=== PATIENT | male | born 1960 | race Caucasian/White ===

== ENCOUNTER 2017-10-01 12:39 | Outpatient (CLI) | payer BC ==
[2017-10-01 13:28] LABS: #Basophils 0.1 thou/uL (0.0-0.2); #Eosinphils 0.1 thou/uL (0.0-0.7); #Lymphocytes 1.4 thou/uL (1.20-3.40); #Monocytes 0.4 thou/uL (0.11-0.59); #Neutrophils 3.6 thou/uL (1.40-6.50); %Basophils 1.2 % (0.0-1.0); %Eosinophils 2.7 % (0.0-10.0); %Lymphocytes 25.7 % (21.0-51.0); %Monocytes 6.5 % (0.0-10.0); Hemoglobin 14.7 g/dL (14.0-18.0); Mean Corpuscular HGB CONC 32.7 g/dL (32.0-36.0); Mean Corpuscular Hemoglobin 31.6 pg (27.0-31.0); Mean Corpuscular Volume 96.7 fl (80.0-94.0); Mean Platelet Volume 6.7 fL (7.4-10.4); Platelet Count 295 thou/uL (130-400); RBC Distribution Width 11.5 % (11.5-14.5); Red Blood Cell (RBC) Count 4.64 mill/uL (4.70-6.10); White Blood Cell (WBC) Count 5.6 thou/uL (4.8-10.8)
[2017-10-01 13:56] LABS: Anion Gap 11 mmol/L (10-20); BUN (Urea Nitrogen) 12 mg/dL (8.4-25.7); Calc. Creatinine Clearance 0 mL/min (70-130); Calcium 9.4 mg/dL (7.8-10.44); Carbon Dioxide 30 mmol/L (22-29); Chloride 104 mmol/L (98-107); Estimated GFR-MDRD Greater than 90; Glucose 106 mg/dL (70-105); Potassium 4.5 mmol/L (3.5-5.1); Sodium 140 mmol/L (136-145)
== END 2017-10-01 12:40 | disposition home or self-care (01) ==
LOC: LABBT 12:39
PROVIDERS: ATTEND Orthopaedic Surgery Hand Surgery
DX: Z01.812 Encounter for preprocedural laboratory examination (principal); M65.331 Trigger finger, right middle finger
CPT/HCPCS: 80048; 85025

== ENCOUNTER 2017-10-02 06:50 | Day surgery (SDC) | payer BC ==
[2017-10-01 12:59] VITALS: BMI 27.9
[2017-10-02] MEDS ORDERED: CEFAZOLIN/Water 2 GM/20 ML SYRINGE ONE (07:54)
[2017-10-02] MEDS ORDERED: Sodium Chloride 0.9% 10 ML ONE (08:53)
[2017-10-02] MEDS ORDERED: Bupivacaine 0.5% 10 ML VIAL ONE (08:53)
[2017-10-02] MEDS ORDERED: Bacitracin Zinc Ointment 30 gm TUBE ONE (08:53)
[2017-10-02] MEDS ORDERED: Betamet Acet/Betamet Na Ph 30 MG/5 ML VIAL ONE (08:53)
[2017-10-02] MEDS ORDERED: Midazolam HCl 2 mg/2 ml Vial ONE ×2 (08:55)
[2017-10-02] MEDS ORDERED: Fentanyl 100 MCG/2 ML VIAL ONE (08:55)
[2017-10-02] MEDS ORDERED: Ketorolac Tromethamine 30 MG/ML VIAL ONE ×2 (10:15→16:33)
--- NOTE | 2017-10-02 11:20 | OP ---
DATE OF PROCEDURE: 10/02/2017 PREOPERATIVE DIAGNOSIS: Right middle finger trigger digit. POSTOPERATIVE DIAGNOSES: Right middle finger trigger digit with findings of FDS and FDP flexor profu ndus and superficialis, tenosynovitis. PROCEDURE PERFORMED: 1. Flexor digitorum tenosynovectomy, profundus superficialis. 2. A1 lbiia release, right middle finger. TOURNIQUET TIME: 12 minutes. ESTIMATED BLOOD LOSS: Blood loss less than 2 mL. SPECIMEN: None. FINDINGS: Very tight A1 libia with tenosynovial edema and thickening underneath and proximal to the flexor tendon. SURGEON: Galindo Miguel M.D. DESCRIPTION OF PROCEDURE: After successful general LMA technique the limb was prepped and draped. W e did augment this with a 5 mL 0.5% Marcaine just proximal to the transverse incision. The incision was outlined along the volar MP joint flexion crease which was oblique at the long/middle finger. To urniquet was inflated after exsanguination of the limb to 250 mmHg pressure. We entered this outline d incision carried through skin and subcutaneous tissue. Protected and visualized the digital nerves , and saw a very tight A1 libia released in the midline with a [place] blade. We then released some tight fascial bands proximal to the tendon elevated proximal to the libia, elevated to the palm. Mo derate amount of tenosynovial edema was noted so we did a flexor tenosynovectomy radical. The wound was then closed after hemostasis obtained and the patient left the operating room with Cel[place] drip to the wound, 2 mL without complication.
[2017-10-02] MEDS ORDERED: PROPOFOL 200 MG/20 ML VIAL ONE (16:33)
[2017-10-02] MEDS ORDERED: Lidocaine 1% PF 5 ML VIAL ONE (16:33)
[2017-10-02] MEDS ORDERED: ePHEDrine/0.9% NaCl/PF SYRINGE 50 mg/10 ml ONE (16:33)
[2017-10-02] MEDS ORDERED: Dexamethasone 20 MG/5 ML VIAL ONE (16:33)
[2017-10-02] MEDS ORDERED: Ondansetron PF 4 MG/2 ML Vial ONE (16:33)
== END 2017-10-02 11:44 | disposition home or self-care (01) ==
LOC: SDC 06:50
PROVIDERS: ATTEND Orthopaedic Surgery Hand Surgery
PROC: 0LB70ZZ Excision of Right Hand Tendon, Open Approach (ICD-10-PCS; principal; 2017-10-02)
PROC: 0LN70ZZ Release Right Hand Tendon, Open Approach (ICD-10-PCS; principal; 2017-10-02)
DX: M65.331 Trigger finger, right middle finger (principal); M65.9 Synovitis and tenosynovitis, unspecified; Z87.442 Personal history of urinary calculi; Z90.49 Acquired absence of other specified parts of digestive tract; Z98.890 Other specified postprocedural states
CPT/HCPCS: 96372; J0702; J1100; J1885; J2001; J2250; J2405; J2704; J3010; J3490

== ENCOUNTER 2022-05-29 14:27 | Outpatient (CLI) | payer BC ==
[2022-05-29 17:24] LABS: #Basophils 0.1 10x3/uL (0.0-0.2); #Eosinphils 0.1 10x3/uL (0.0-0.5); #Monocytes 0.4 10x3/uL (0.0-1.1); #Neutrophils 4.6 10x3/uL (1.5-8.4); %Basophils 0.9 % (0.0-2.0); %Eosinophils 1.5 % (0.0-6.0); %Lymphocytes 20.8 % (18.0-47.0); %Monocytes 6.2 % (0.0-10.0); %Neutrophils 70.1 % (40.0-75.0); Mean Corpuscular HGB CONC 34.1 g/dL (32.0-36.0); Mean Corpuscular Volume 94.1 fl (81.2-95.1); Mean Platelet Volume 10.3 fl (7.4-10.4); Platelet Count 265 10x3/uL (150-450); RBC Distribution Width 12.2 % (11.5-14.5); Red Blood Cell (RBC) Count 4.37 10x6/uL (4.32-5.72); White Blood Cell (WBC) Count 6.6 10x3/uL (3.5-10.5)
[2022-05-29 22:01] LABS: Hemoglobin A1c 5.4 % (4.0-6.0)
== END 2022-05-29 14:28 | disposition home or self-care (01) ==
LOC: LABBT 14:27
PROVIDERS: ATTEND Orthopaedic Surgery Hand Surgery
DX: Z01.812 Encounter for preprocedural laboratory examination (principal); M65.342 Trigger finger, left ring finger
CPT/HCPCS: 83036; 85025

== ENCOUNTER 2022-06-02 12:06 | Day surgery (SDC) | payer BC ==
[2022-05-30 10:57] VITALS: BMI 28.6
[2022-06-02] MEDS ORDERED: Bupivacaine PF 0.5% 30 ML VIAL ONE (13:06)
[2022-06-02] MEDS ORDERED: Betamet Acet/Betamet Na Ph 30 MG/5 ML VIAL ONE (13:06)
[2022-06-02] MEDS ORDERED: Bacitracin Zinc Ointment 30 gm TUBE ONE (13:07)
[2022-06-02] MEDS ORDERED: Neomycin-Polymyxin 1 ML AMP ONE (13:07)
[2022-06-02] MEDS ORDERED: fentaNYL Citrate/PF 100 MCG/2 ML SYRINGE ONE (13:29)
[2022-06-02] MEDS ORDERED: Midazolam HCl 2 mg/2 ml Vial ONE (13:29)
[2022-06-02] MEDS ORDERED: CEFAZOLIN 2 GM VIAL ONE (13:34)
[2022-06-02] MEDS ORDERED: Sodium Chloride 0.9% 100 ML ONE (13:34)
[2022-06-02] MEDS ORDERED: PROPOFOL 200 MG/20 ML VIAL ONE (14:14)
[2022-06-02] MEDS ORDERED: ePHEDrine 50 MG/ML VIAL ONE (14:14)
[2022-06-02] MEDS ORDERED: Dexamethasone 20 MG/5 ML VIAL ONE (14:14)
[2022-06-02] MEDS ORDERED: Ketorolac Tromethamine 30 MG/ML VIAL ONE ×2 (14:14→15:34)
[2022-06-02] MEDS ORDERED: Ondansetron PF 4 MG/2 ML Vial ONE (14:14)
== END 2022-06-02 16:18 | disposition home or self-care (01) ==
LOC: SDC 12:06
PROVIDERS: ATTEND Orthopaedic Surgery Hand Surgery
PROC: 0LN80ZZ Release Left Hand Tendon, Open Approach (ICD-10-PCS; principal; 2022-06-02)
DX: M65.342 Trigger finger, left ring finger (principal)
CPT/HCPCS: J0690; J0702; J1885; J2250; J3490; S0020